=== PATIENT | female | born 1990 | race Caucasian/White ===

== ENCOUNTER → 2016-07-07 | Outpatient (CLI) | payer BC, MEDICAID ==
--- NOTE | 2016-07-08 04:03 | REP ---
Clinical: History of gestational diabetes for growth evaluation . Comparison: None available . Findings: Examination demonstrates a single live intrauterine in cephalic presentation. motion is identified by technologist. Placenta is noted anteriorly and grade one without evidence for placenta previa or abruption. Amniotic fluid volume is normal. Cervix measures 4.3 cm in length and appears closed. Nuchal cord cannot be excluded. Gestational age by current measurements 34 weeks 4 days with MEIR 08/14/2016 . FHR equals 126 beats per minute. BPD 8.7 cm 34 weeks 6 days HC 31.3 cm 35 weeks 0 days AC 29.5 cm 33 weeks 3 days FL 6.9 cm 35 weeks 3 days HL 6.0 cm 34 weeks 5 days HC/AC ratio 1.06 Estimated weight 2401 grams ( 43rd percentile). Amniotic fluid index equals 8.7 cm. Anatomical evaluation demonstrates mild bilateral renal pelviectasis up to 4 mm diameter. Impression: Single live advanced gestation in cephalic presentation. Mild renal pelviectasis. No further gross abnormalities appreciated. Signed by Charles Gill MD 07/08/2016 03:54 A
== END ==
LOC: M SMT 15:09
PROVIDERS: ATTEND Advanced Practice Midwife
DX: O24.419 Gestational diabetes mellitus in pregnancy, unspecified control (principal); Z3A.34 34 weeks gestation of pregnancy

== ENCOUNTER → 2016-07-21 | Outpatient (REF) | payer BC, MEDICAID | LOC: M LAB REF 12:56 | PROVIDERS: ATTEND Obstetrics & Gynecology | DX: Z34.83 Encounter for supervision of other normal pregnancy, third trimester (principal); Z36 Encounter for antenatal screening of mother ==

== ENCOUNTER 2016-08-07 07:46 | Inpatient (IN) | payer BC, MEDICAID ==
[~2016-08-07] VITALS: Ht 157.5 cm; Wt 70.0 kg
[2016-08-07] VITALS (17 sets, daily range): BP systolic 102–143; BP diastolic 52–74
[2016-08-07] MEDS ORDERED: METF500T PO (08:02)
[2016-08-07] MEDS ORDERED: PRENTAB9 PO (08:02)
--- NOTE | 2016-08-07 08:49 | HPE ---
DATE OF ADMISSION: 08/07/2016 A 26-year-old 2, para 1 female at 38-5/7 weeks gestation by an 8-week ultrasound, estimated date of confinement (EDC) 08/16/2016, presents with regular contractions every 4-5 minutes starting at 4:45 a.m. on the day of admission, the contractions increased in intensity. She has a history of prior and desires trial of labor after . COURSE: The patient initiated care at 8 weeks gestation on 01/04/2016. Her first trimester blood pressure was 112/64, weight 125 pounds. She came to [place] for care with desire for a trial of labor after (TOLAC). Her course was significant for gestational diabetes, which was diet controlled. She had excellent control of sugars throughout and adequate ultrasounds for growth. OBSTETRICAL HISTORY: November of 2013: 40-week section of a 7 pound male . The patient had arrest of descent after pushing for 3 hours along with a failed vacuum delivery at that time. MEDICAL HISTORY: Noncontributory. SURGICAL HISTORY: section. ALLERGIES: No known drug allergies. SOCIAL HISTORY: The father of the baby is involved with the patient. Denies cigarettes alcohol or drug use. FAMILY HISTORY: Noncontributory. PHYSICAL EXAMINATION: Blood pressure 124/80. She appears uncomfortable. Head and neck exam: Normal. Lungs: Clear. Heart: Regular rate and rhythm. Abdomen: Nontender, gravid. heart tones: Category 1. Contractions every 3-5 minutes, which palpate as strong. Cervix 4 cm, 100% effaced, -1 station, vertex intact. Extremities: Nontender. LABORATORY: Blood type O+, rubella immune, RPR nonreactive. Hepatitis B and C negative. HIV negative. GBS positive on 07/21/2016. ASSESSMENT: A 26-year-old 2, para 1 at 38-5/7 weeks gestation, history of prior section, presents in active labor. Risks of vaginal after were discussed, including risk of uterine rupture. The patient understands the risks and wishes to proceed. The patient was admitted on 08/07/2016. .
[2016-08-07] MEDS ORDERED: PENICILLIN G POTASSIUM IV 5 MU in D5W MINI-BAG PLUS 100 ML IV STA (09:06)
[2016-08-07 09:07] LABS: MEAN CORPUSCULAR HEMOGLOBIN 32.1 pg (27.0-33.0); MEAN CORPUSCULAR HGB CONC 35.4 g/dl (32.0-36.5); MEAN CORPUSCULAR VOLUME 90.5 fl (80.0-96.0); RED CELL DISTRIBUTION WIDTH 12.6 % (11.5-14.5); WHITE BLOOD COUNT 11.4 K/mm3 (4.0-10.0)
[2016-08-07] MEDS ORDERED: FENTANYL 2MCG/ML ROPIVACAINE 0.2% NACL 250 ML CADD As Ordered ONE (09:54)
[2016-08-07] MEDS ORDERED: NALOXONE INJ 0.4 MG/1 ML VIAL (J2310) IV PRN (11:30)
[2016-08-07] MEDS ORDERED: ONDANSETRON 4MG/2ML VIAL (J2405) IV PRN ×2 (11:30→15:15)
[2016-08-07] MEDS ORDERED: ePHEDrine SULFATE 25 MG/5 ML(5MG/ML) SYRINGE IV PRN (11:30)
[2016-08-07] MEDS ORDERED: FENTANYL/ROPIVACAINE/NACL CADD 250 ML EPIDURAL SCH (11:30)
[2016-08-07] MEDS ORDERED: EPIDURAL/PCA KEYS XX PRN (11:30)
[2016-08-07] MEDS ORDERED: REFRIGERATOR IV KEYS XX PRN (11:30)
[2016-08-07] MEDS ORDERED: EPIDURAL COMMENT XX SCH (11:30)
[2016-08-07] MEDS ORDERED: diphenhydrAMINE INJ 50MG/ML VIAL (J1200) IV PRN (11:30)
[2016-08-07] MEDS ORDERED: PENICILLIN G POTASSIUM IV 2.5 MU in D5W 100 ML IV SCH (13:00)
[2016-08-07] MEDS ORDERED: OXYTOCIN 30 UNITS IN 0.9% NaCl 500ML IV BAG (J2590) As Ordered ONE (14:40)
[2016-08-07] MEDS ORDERED: RHOGAM 300 MCG (1500 IU) INJ (J2790) IM SCH (15:15)
[2016-08-07] MEDS ORDERED: MEASLES,MUMPS,RUBELLA VACCINE INJ (MMR-II) (90707) SC SCH (15:15)
[2016-08-07] MEDS ORDERED: DOCUSATE SODIUM 100 MG CAP PO PRN (15:15)
[2016-08-07] MEDS ORDERED: OXYTOCIN DRIP 30 UNITS in APPROPRIATE DILUENT 1 EA IV ONE (15:15)
[2016-08-07] MEDS ORDERED: DIBUCAINE 1% OINTMENT 30GM TOP PRN (15:15)
[2016-08-07] MEDS ORDERED: IBUPROFEN 800 MG TAB PO PRN (15:15)
[2016-08-07] MEDS ORDERED: METHYLERGONOVINE MALEATE 0.2 MG TAB PO PRN (15:15)
--- NOTE | 2016-08-07 15:23 | DN ---
DATE: 08/07/2016 PREDELIVERY DIAGNOSIS: 38-5/7 weeks gestation, in labor, vaginal after (). POSTDELIVERY DIAGNOSIS: Delivered. PROCEDURE: Spontaneous vaginal delivery. PARKING MANAGER: Dr. Hernan Cantrell ANESTHESIA: Epidural. ESTIMATED BLOOD LOSS: 300 mL. FINDINGS: 7 pound 1 ounce male infant, scores 9 and 9. DELIVERY SUMMARY: After a 20-minute second stage, the patient had spontaneous delivery of a 7 pound 1 ounce male under epidural anesthesia. There was no nuchal cord. The shoulders delivered spontaneously with ease. The infant cried spontaneously and was handed to the mother. The cord was doubly clamped and cut. Placenta delivered spontaneously and appeared to be intact. The patient received IV Pitocin immediately after delivery of the placenta. Secondary perineal laceration was repaired in the usual fashion.
[2016-08-07] MEDS: ACETAMINOPHEN 500 MG TAB PO PRN (19:50)
[2016-08-08 05:45] VITALS: BP 114/55
[2016-08-08] MEDS: PRENATAL VITAMIN TAB PO SCH (09:00)
[2016-08-08] MEDS: ACETAMINOPHEN 500 MG TAB PO PRN (10:52)
[2016-08-08 18:31] VITALS: BP 131/60
[2016-08-09 06:09] VITALS: BP 110/53
[2016-08-09] MEDS: PRENATAL VITAMIN TAB PO SCH (08:24)
[2016-08-09] MEDS ORDERED: ACET50TA PO (09:22)
[2016-08-09] MEDS ORDERED: IBUP-1114 PO (09:22)
== END 2016-08-09 10:55 | disposition home or self-care (01) | DRG 560 ==
LOC: M LDO 07:46 → M LDI 08:11 → M OBS 17:00
PROVIDERS: ADMIT Specialist; ATTEND Specialist
PROC: 10E0XZZ Delivery of Products of Conception, External Approach (ICD-10-PCS; principal; 2016-08-07)
PROC: 0KQM0ZZ Repair Perineum Muscle, Open Approach (ICD-10-PCS; 2016-08-07)
DX: O34.211 Maternal care for low transverse scar from previous cesarean delivery (principal); Z37.0 Single live birth; Z3A.38 38 weeks gestation of pregnancy; O70.1 Second degree perineal laceration during delivery

== ENCOUNTER → 2017-11-09 | Outpatient (CLI) | payer OTHER ==
[2017-11-09 18:13] LABS: BASO % 0.4 % (0.0-1.0); EOS % 0.5 % (0.0-3.0); HEMATOCRIT 37.4 % (36.0-47.0); HEMOGLOBIN 12.6 g/dl (12.0-15.5); IMMATURE GRANULOCYTE % 0.5 % (0-3.0); LYMPH # 1.7 10^3/uL (1.5-6.5); LYMPH % 21.8 % (24.0-44.0); MEAN CORPUSCULAR HEMOGLOBIN 30.7 pg (27.0-33.0); MEAN CORPUSCULAR HGB CONC 33.7 g/dl (32.0-36.5); MONO # 0.5 10^3/uL (0.0-0.8); MONO % 6.7 % (0.0-5.0); NEUTROPHILS # 5.4 10^3/uL (1.8-7.7); NEUTROPHILS % 70.1 % (36.0-66.0); PLATELET COUNT, AUTOMATED 243 10^3/uL (150-450); RED BLOOD COUNT 4.11 10^6/uL (4.00-5.40); RED CELL DISTRIBUTION WIDTH 12.8 % (11.5-14.5); WHITE BLOOD COUNT 7.7 10^3/uL (4.0-10.0)
[2017-11-09 21:33] LABS: CHLAMYDIA DNA AMPLIFICATION NEGATIVE (NEGATIVE); GC DNA AMPLIFICATION NEGATIVE (NEGATIVE)
[2017-11-10 12:03] LABS: RUBELLA IgG QUALITATIVE IMMUNE (IMMUNE)
[2017-11-10 12:11] LABS: HBsAg Prenatal NEGATIVE (NEGATIVE)
[2017-11-10 12:33] LABS: HEPATITIS C VIRUS ABY INDEX < 0.0 INDEX (<0.8)
[2017-11-10 12:34] LABS: HIV 1&2 SCREEN CENTAUR NEGATIVE (NEGATIVE)
== END ==
LOC: M SMT 14:26
DX: Z36.89 Encounter for other specified antenatal screening (principal); Z3A.12 12 weeks gestation of pregnancy
CPT/HCPCS: 86762

== ENCOUNTER → 2017-12-26 | Outpatient (CLI) | payer MEDICAID, BC | LOC: M RAD 10:33 | DX: Z34.82 Encounter for supervision of other normal pregnancy, second trimester (principal); Z36.89 Encounter for other specified antenatal screening; Z3A.19 19 weeks gestation of pregnancy | CPT/HCPCS: 76811 ==

== ENCOUNTER → 2018-01-12 | Outpatient (CLI) | payer MEDICAID | LOC: M RAD 13:36 | DX: Z34.82 Encounter for supervision of other normal pregnancy, second trimester (principal) | CPT/HCPCS: 76816 ==

== ENCOUNTER → 2018-04-25 | Outpatient (REF) | payer MEDICAID, OTHER | LOC: M LAB REF 16:59 | DX: Z34.83 Encounter for supervision of other normal pregnancy, third trimester (principal) ==

== ENCOUNTER 2018-05-17 07:19 | Inpatient (IN) | payer OTHER ==
[2018-05-17] MEDS: LACTATED RINGER'S 1000 ML IV (08:14)
[2018-05-17] MEDS: PENICILLIN G POTASSIUM IV 5 MU in D5W MINI-BAG PLUS 100 ML IV (08:23)
[2018-05-17 08:26] LABS: HEMOGLOBIN 13.5 g/dl (12.0-15.5); MEAN CORPUSCULAR HEMOGLOBIN 32.5 pg (27.0-33.0); MEAN CORPUSCULAR HGB CONC 35.5 g/dl (32.0-36.5); MEAN CORPUSCULAR VOLUME 91.3 fl (80.0-96.0); PLATELET COUNT, AUTOMATED 207 10^3/uL (150-450); RED BLOOD COUNT 4.16 10^6/uL (4.00-5.40); RED CELL DISTRIBUTION WIDTH 12.6 % (11.5-14.5); WHITE BLOOD COUNT 8.5 10^3/uL (4.0-10.0)
[2018-05-17] MEDS: FENTANYL/ROPIVACAINE/NACL BAG 100 ML EPIDURAL (09:30)
[2018-05-17] MEDS: LR 1,000 ML IV (09:32)
[2018-05-17] MEDS ORDERED: ePHEDrine SULFATE 25 MG/5 ML(5MG/ML) SYRINGE IV (10:00)
[2018-05-17] MEDS ORDERED: REFRIGERATOR IV KEYS XX (10:00)
[2018-05-17] MEDS ORDERED: EPIDURAL/PCA KEYS XX (10:00)
[2018-05-17] MEDS ORDERED: LACTATED RINGER'S 1000 ML IV (10:00)
[2018-05-17] MEDS ORDERED: NALOXONE INJ 0.4 MG/1 ML VIAL (J2310) IV (10:00)
[2018-05-17] MEDS ORDERED: diphenhydrAMINE INJ 50MG/ML VIAL (J1200) IV (10:00)
[2018-05-17] MEDS ORDERED: EPIDURAL COMMENT XX (10:00)
[2018-05-17] MEDS ORDERED: ONDANSETRON 4MG/2ML VIAL (J2405) IV (10:00)
[2018-05-17] MEDS: PENICILLIN G POTASSIUM IV 2.5 MU in APPROPRIATE DILUENT 1 EA IV (12:23)
[2018-05-17] MEDS ORDERED: OXYTOCIN 30 UNITS IN 0.9% NaCl 500ML IV BAG (J2590) As Ordered (12:49)
[2018-05-17] MEDS ORDERED: RHOGAM 300 MCG (1500 IU) INJ (J2790) IM (13:45)
[2018-05-17] MEDS ORDERED: ACETAMINOPHEN 500 MG TAB PO (13:45)
[2018-05-17] MEDS ORDERED: METHYLERGONOVINE MALEATE 0.2 MG TAB PO (13:45)
[2018-05-17] MEDS ORDERED: MEASLES,MUMPS,RUBELLA VACCINE INJ (MMR-II) (90707) SC (13:45)
[2018-05-17] MEDS ORDERED: DIBUCAINE 1% OINTMENT 30GM TOP (13:45)
[2018-05-17] MEDS ORDERED: ANUSOL HC CREAM 30GM TOP (13:45)
[2018-05-17] MEDS ORDERED: MOM 30ML SUSPENSION UDC PO (13:45)
[2018-05-17] MEDS ORDERED: METOCLOPRAMIDE INJ 10MG/2ML VIAL (J2765) IV (13:45)
[2018-05-17] MEDS ORDERED: DOCUSATE SODIUM 100 MG CAP PO (13:45)
[2018-05-17] MEDS ORDERED: IBUPROFEN 800 MG TAB PO (13:45)
[2018-05-17] MEDS: OXYTOCIN DRIP 30 UNITS in APPROPRIATE DILUENT 1 EA IV (14:28)
[2018-05-18] MEDS: PRENATAL VITAMINS CHEWABLE TABLET PO (08:33)
[2018-05-19] MEDS: PRENATAL VITAMINS CHEWABLE TABLET PO (09:31)
== END 2018-05-19 11:45 | disposition home or self-care (01) | DRG 560 ==
LOC: M LDO 07:19 → M LDI 07:55 → M OBS 15:54
PROVIDERS: Obstetrics & Gynecology
PROC: 10E0XZZ Delivery of Products of Conception, External Approach (ICD-10-PCS; principal; 2018-05-17)
DX: O34.211 Maternal care for low transverse scar from previous cesarean delivery (principal); O99.820 Streptococcus B carrier state complicating pregnancy; Z37.0 Single live birth; Z3A.39 39 weeks gestation of pregnancy

== ENCOUNTER → 2019-01-16 | Outpatient (CLI) | payer OTHER ==
[~2019-01-16] MED LIST: IBUP-1114 PO; MAPA500T2 PO; METF500T13 PO; PRENTAB9 PO
[2019-01-16 13:32] LABS: BASO % 0.6 % (0.0-1.0); EOS # 0.1 10^3/uL (0.0-0.50); EOS % 1.4 % (0.0-3.0); HEMATOCRIT 42.1 % (36.0-47.0); HEMOGLOBIN 14.1 g/dl (12.0-15.5); LYMPH # 1.7 10^3/uL (1.5-6.5); LYMPH % 25.9 % (24.0-44.0); MEAN CORPUSCULAR HEMOGLOBIN 31.3 pg (27.0-33.0); MEAN CORPUSCULAR HGB CONC 33.5 g/dl (32.0-36.5); MEAN CORPUSCULAR VOLUME 93.6 fl (80.0-96.0); MONO # 0.6 10^3/uL (0.0-0.8); NEUTROPHILS % 62.3 % (36.0-66.0); PLATELET COUNT, AUTOMATED 204 10^3/uL (150-450); WHITE BLOOD COUNT 6.4 10^3/uL (4.0-10.0)
[2019-01-16 14:39] LABS: HEPATITIS C VIRUS ABY INDEX 0.1 INDEX (<0.8); HIV 1&2 SCREEN CENTAUR NEGATIVE (NEGATIVE); RUBELLA IgG QUALITATIVE IMMUNE (IMMUNE)
[2019-01-16 16:42] LABS: CHLAMYDIA DNA AMPLIFICATION NEGATIVE (NEGATIVE); GC DNA AMPLIFICATION NEGATIVE (NEGATIVE)
== END ==
LOC: M SMT 10:47
PROVIDERS: ATTEND Advanced Practice Midwife
DX: Z34.81 Encounter for supervision of other normal pregnancy, first trimester (principal); Z3A.00 Weeks of gestation of pregnancy not specified

== ENCOUNTER → 2019-02-22 | Outpatient (CLI) | payer OTHER ==
--- NOTE | 2019-02-22 19:28 | REP ---
HISTORY: anatomy. Multiple ultrasonographic images of the gravid uterus show a single living intrauterine gestation in variable positions. Doppler interrogation of the heart shows a heart rate of 139 beats per minute. The placenta is anterior and not low lying. The subjective amniotic fluid volume is within normal limits. The cervix measures 3.9 cm in length and is closed. The structures visualized as unremarkable are as follows: Thalami, cavum septum pellucidum, cerebellum, cisterna magna, cerebral ventricles, kidneys, urinary bladder, cord insertion, three vessel umbilical cord, upper lip, four chamber heart, right and left ventricular outflow tracts, and stomach. The spine was suboptimally visualized. BPD 4.4 cm = 19 weeks 1 day HC 15.9 cm = 18 weeks 5 days AC 13.3 cm = 18 weeks 6 days FL 2.8 cm = 18 weeks 4 days The estimated weight is 254 grams, which is at the 17th percentile for a 19 week 4 day gestational age. IMPRESSION: Single living intrauterine gestation as described above with an estimated gestational age of 18 weeks 6 days via composite criteria and an estimated date of delivery of 07/20/2019 by today's exam. No anomalies were detected, however, I recommend a followup examination to better visualize the spine. Electronically Signed by Larry Weeks DO 02/22/2019 07:42 P
== END ==
LOC: M RAD 17:34
PROVIDERS: ATTEND Advanced Practice Midwife
DX: Z34.82 Encounter for supervision of other normal pregnancy, second trimester (principal); Z3A.19 19 weeks gestation of pregnancy

== ENCOUNTER → 2019-04-05 | Outpatient (CLI) | payer OTHER ==
--- NOTE | 2019-04-06 08:04 | REP ---
OB ULTRASOUND: Real-time sonographic evaluation of the gravid uterus is performed. There is a single living intrauterine gestation, the estimated gestational age 25 weeks 4 days. EDC 07/15/2019. Today's measurements indicate appropriate growth. BPD 62 mm 25 weeks 1 day, 41st percentile HC 228 mm 24 weeks 6 days, 33rd percentile AC 197 mm 24 weeks 3 days, 25th percentile FL 44 mm 24 weeks 4 days, 29th percentile HC/AC ratio 1.16 within normal range. Estimated weight 708 grams, 16th percentile. Cervix is closed and measures 3.6 cm in length. heart rate 130 beats per minute. Today's measurements indicate appropriate growth. SEEN/GROSSLY UNREMARKABLE Lateral ventricles Yes Posterior fossa Yes Upper lip Yes Four-chamber heart Yes LVOT Yes RVOT Yes Stomach Yes Cord insertion Yes Three vessel cord Yes Kidneys Yes Bladder Yes Spine No position: Breech. Placenta: Anterior and grade 0 with no previa or abruption. Placental cord insertion is noted to be somewhat eccentric. Amniotic fluid: Within normal limits. Electronically Signed by Keshav Clark MD 04/06/2019 03:40 P
== END ==
LOC: M RAD 17:39
PROVIDERS: ATTEND Obstetrics & Gynecology
DX: Z34.82 Encounter for supervision of other normal pregnancy, second trimester (principal); Z3A.24 24 weeks gestation of pregnancy

== ENCOUNTER → 2019-04-22 | Outpatient (CLI) | payer OTHER ==
--- NOTE | 2019-04-23 06:18 | REP ---
Clinical: Anatomical evaluation. Comparison: 04/05/2019 . Findings: Examination demonstrates a single live intrauterine in breech presentation. motion is identified by technologist. Placenta is noted anterior and grade air I without evidence for placenta previa or abruption. Amniotic fluid volume is normal. Cervix measures 3.4 cm in length and appears closed. No evidence for nuchal cord. Gestational age by LMP 28 weeks 0 days with MEIR 07/15/2019 . Gestational age by current measurements 27 weeks 3 days with MEIR 07/19/2019 . FHR equals 132 beats per minute. Estimated weight 1027 grams ( 22nd percentile). Anatomical assessment demonstrates normal structures including cranium, cavum, cerebellum/posterior fossa, facial features, lungs, four-chamber heart/ventricular outflow tracts, diaphragm, stomach, three-vessel cord, kidneys/bladder. Impression: 1. Single live intrauterine in breech presentation demonstrating appropriate interval growth. 2. No gross anatomical abnormalities are appreciated. Electronically Signed by Charles Gill MD 04/23/2019 06:10 A
== END ==
LOC: M RAD 09:49
PROVIDERS: ATTEND Advanced Practice Midwife
DX: Z34.82 Encounter for supervision of other normal pregnancy, second trimester (principal); Z3A.27 27 weeks gestation of pregnancy

== ENCOUNTER → 2019-06-21 | Outpatient (CLI) | payer OTHER | LOC: M PLALAB 11:27 | PROVIDERS: ATTEND Advanced Practice Midwife | DX: O34.211 Maternal care for low transverse scar from previous cesarean delivery (principal) ==

== ENCOUNTER 2019-07-17 18:00 | Inpatient (IN) | payer OTHER ==
[~2019-07-17] VITALS: Ht 157.5 cm; Wt 75.7 kg
[2019-07-17] VITALS (8 sets, daily range): BP systolic 97–146; BP diastolic 53–78
[2019-07-17] MEDS ORDERED: LR 1,000 ML IV SCH (18:29)
[2019-07-17] MEDS ORDERED: LACTATED RINGER'S 1000 ML IV STA (18:29)
[2019-07-17 18:55] LABS: HEMATOCRIT 39.9 % (36.0-47.0); HEMOGLOBIN 13.1 g/dl (12.0-15.5); MEAN CORPUSCULAR HGB CONC 32.8 g/dl (32.0-36.5); MEAN CORPUSCULAR VOLUME 94.3 fl (80.0-96.0); PLATELET COUNT, AUTOMATED 215 10^3/uL (150-450); RED BLOOD COUNT 4.23 10^6/uL (4.00-5.40); WHITE BLOOD COUNT 9.8 10^3/uL (4.0-10.0)
--- NOTE | 2019-07-17 19:17 | HPEPDOC ---
Obstetrical History & Physical General Date of Admission Jul 17, 2019 at 18:28 Primary Care Physician: HARSHAL ROY CNM History of Present Illness Patient is a 29-year-old at 40.1wk gestation based on LMP and consistent with 9-week ultrasound. MEIR 07/16/18. She initiated care in first trimester. has been complicated by history of and nephrolithiasis. Patient is O+ and GBS negative. She presents to labor and delivery complaining of painful uterine contractions increasing in intensity at 1500 today. Patient denies leakage of fluid or vaginal bleeding. She reports positive movement. Chief Complaint: Contractions, term, Active Labor Information Provided By: Patient Age: 29 : 4 Term: 3 Pre-term: 0 Abortions: 0 Livin Care Care: Good Care Dating Final EDC: Jul 16, 2019 Final EDC by: LMP LMP: Oct 09, 2018 1st Trimester Date: Dec 19, 2018 Antepartum Course Diagnos(e)s SIUP at 40.1wk, TOLAC Height (inches): 62 Pre- weight (lbs.): 130 Admission Weight (lbs.): 167 Change in Weight (lbs.): 37 Past Medical History Past Obstetrical History #1: Past Obstetrical History: Primgravida Gestation: 40 Type of Delivery: Ceserean section (11/2013) Sex of : Male Weight of (grams): 3175 Complications: Yes (arrest of descent, vacuum, episiotomy) Past Obstetrical History #2: Past Obstetrical History: Multigravida Gestation: 39 Type of Delivery: Spontaneous Vaginal Del. (07/2016) Sex of : Male Weight of Infant (grams): 3232 Complications: No Past Obstetrical History #3: Gestation: 39 Type of Delivery: Spontaneous Vaginal Del. (05/2018) Sex of Infant: Female Weight of (grams): 3260 Complications: No PORTAL DEVELOPER History: No pertinent history Past Medical History Medical History asthma Surgical History: section Family History Significant Family History: Diabetes, Heart disease, Hypertension Social History Marital Status: Family situation: Spouse/partner home Psychosocial History: No pertinent psych hx * Smoker: non-smoker Alcohol: Denies Drugs: denies Abuse Violence Screening Have you been hit/kicked/slapp: No Have you been sexually assault: No Allergies Coded Allergies: No Known Allergies (Unverified , 07/17/19) Medications Scheduled No.137/Iron/Folic Acd ( Vitamin Tablet) 1 Tab Tab, 1 TAB PO DAILY Physical Examination Physical Examination GENERAL: Alert and oriented times three. BREAST: . ABDOMEN: Gravid and non-tender to touch. FETUS: Is vertex (VTX) by sterile vaginal examination (SVE), fetus is vertex ( VTX) by John. HEART RATE: Regular rate and rhythm. LUNGS: Clear to auscultation (CTA). EXTREMITIES: No edema. No clonus. Deep tendon reflexes (DTRs) + 2. Laboratory Data 24H LABS Laboratory Tests 2 07/17/19 18:32: Serology Scanned Report Hepatitis B Testing Pertinent Laboratoy Data Blood Type: O+ RBC Antibody Screen: Negative HIV: Negative Hepatitis B: Negative Hepatitis C: Negative Rapid Plasma Reagin: Nonreactive Rubella: Immune Chlamydia/Gonorrhea: Negative Group B Streptococcus: Negative Quad Screen Test: Declined Glucose Tolerance Test: 97 Anatomy Ultrasound Ultrasound Date: Feb 22, 2019 Placenta Location: Anterior Normal Anatomy: Yes Placenta Previa: No Estimated Weight (grams): 254 (17%) Other Ultrasounds 12/19/18-SIUP, +FH, CRL 24.9mm, 9.1wk gestation 02/22/1930-pkyqjes-QCL normal, EFW 254g (17%), anterior placenta 04/05/19-follow up anatomy-AFV normal, EFW 708g (16%), anterior placenta 04/22/19-follow up anatomy-AFV normal, EFW 1027g (22%), anterior placenta, assessment complete and normal Steroid Therapy Steroid Therapy: No Vaginal Examination Dilation: 5 cm Effacement: 80% Station: 0 Cervical Consistency: Soft Cervical Position: Anterior Presentation: Cephalic presentation Position: Vertex (occiput) Assessment Heart Rate (FHR): 125 Variability: Moderate Accelerations: Positive Decelerations: Variable Tocometer Frequency: every 1-3 min. Duration: greater than 60 seconds Strength: palpated as moderate Assessment/Plan Assessment SIUP at 40.1wk gestation, TOLAC, active labor Plan Admit to labor and delivery. Diet: clears. Group B Streptococcus (GBS) negative. Labs and intravenous (IV) per unit protocol. Counseled on Pitocin and augmentation of labor (IOL). Lactated Ringers (LR): Bolus 800 mL (prior to epidural), then at 125 mL/hr. Up ad herlinda prior to epidural. Anesthesia consult per patient request. Dr. Cantrell consulted, agrees with plan and present in department. Anticipate cervical change and vaginal . C-S as appropriate. HARSHAL ROY CNM Jul 17, 2019 19:17
[2019-07-17] MEDS ORDERED: FENTANYL 2MCG/ML ROPIVACAINE 0.2% IN 0.9% NACL 100ML IVBAG As Ordered ONE (19:28)
[2019-07-17] MEDS ORDERED: EPIDURAL/PCA KEYS XX PRN (19:30)
[2019-07-17] MEDS ORDERED: EPIDURAL COMMENT XX SCH (19:30)
[2019-07-17] MEDS ORDERED: ePHEDrine SULFATE 25 MG/5 ML(5MG/ML) SYRINGE IV PRN (19:30)
[2019-07-17] MEDS ORDERED: NALOXONE INJ 0.4 MG/1 ML VIAL (J2310) IV PRN (19:30)
[2019-07-17] MEDS ORDERED: ONDANSETRON 4MG/2ML VIAL (J2405) IV PRN (19:30)
[2019-07-17] MEDS ORDERED: diphenhydrAMINE INJ 50MG/ML VIAL (J1200) IV PRN (19:30)
[2019-07-17] MEDS ORDERED: FENTANYL/ROPIVACAINE/NACL BAG 100 ML EPIDURAL SCH (19:30)
[2019-07-17] MEDS ORDERED: REFRIGERATOR IV KEYS XX PRN (19:30)
[2019-07-17] MEDS ORDERED: OXYTOCIN 30 UNITS IN 0.9% NaCl 500ML IV BAG (J2590) As Ordered ONE (20:24)
--- NOTE | 2019-07-17 20:25 | IPNPDOC ---
Obstetrical Progress Note Date of Service Jul 17, 2019 Subjective Patient reports she feels comfortable with her epidural. Assessment Heart Rate (FHR): 110 (110-120) Variability: Moderate Accelerations: Positive Decelerations: Early Heart Rate Tracing: Category I Tocometer Contractions: Yes Frequency: regular Sterile Vaginal Examination Dilation: 9 cm Effacement (%): 100% Station: 0 Postion/Presentation: Cephalic presentation Assessment and Plan Status: Reassuring Group B Streptococcus: Negative Anticipate: Vaginal Delivery Additional Comments AROM to a moderate amount of clear fluid. HARSHAL ROY CNM Jul 17, 2019 20:25
--- NOTE | 2019-07-17 21:39 | DNPDOC ---
[facility] Delivery Note Delivery Note DATE OF DELIVERY: 07/17/2019 at 2106 PREDELIVERY DIAGNOSIS: 40-1/7 weeks' gestation and labor. POST DELIVERY DIAGNOSIS: Delivered. PROCEDURE: Spontaneous vaginal delivery after section. PROVIDER: Yohana Manning, Student Nurse-Bee Tender assisted by Harshal Fernandez CNM, [place]; Dr. Cantrell collaborating and in department. ANESTHESIA: Epidural. ESTIMATED BLOOD LOSS: 300 mL. FINDINGS: 7 pound 0 ounce (3180g) male , Score 9/9, tight nuchal cord times 2, successful DELIVERY SUMMARY: Patient is a 29-year-old 4 now para 4-0-0-4 who was admitted to labor and delivery in active labor for trial of labor after (TOLAC). She received an epidural for pain management. AROM performed for moderate amount of clear fluid. Dr. Cantrell was aware of patient's condition and was present in the department during active labor and while patient was pushing until delivery. The patient progressed to fully dilated at 2030 and pushed to a living male in the ROT position without restitution at 2105. A tight nuchal cord times 2 was noted. The anterior shoulder was delivered with ease and the corpus immediately followed with the somersault maneuver. The baby was placed on the maternal abdomen, [id number], active and crying. The cord was clamped times 2 after pulsation ceased and cut by the patient. A 3-vessel cord was noted. The placenta delivered spontaneously and intact at 2109. Uterine hemostasis was achieved via rapid infusion of IV Pitocin at 999 ml/hr for 30 units in 500 ml NS and fundal massage. The vagina, cervix and perineum were inspected and found to have small bilateral labial abrasions that were not repaired due to good hemostasis. Mom plans to breastfeed. Both mom and baby are in stable condition. All counts of instruments and sponges are correct. HARSHAL FERNANDEZ CNM Jul 17, 2019 21:39
[2019-07-17] MEDS ORDERED: OXYTOCIN DRIP 30 UNITS in IV 1 EA IV SCH (21:49)
[2019-07-17] MEDS ORDERED: RHOGAM 300 MCG (1500 IU) INJ (J2790) IM SCH (22:00)
[2019-07-17] MEDS ORDERED: IBUPROFEN 800 MG TAB PO PRN (22:00)
[2019-07-17] MEDS ORDERED: MEASLES,MUMPS,RUBELLA VACCINE INJ (MMR-II) (90707) SC SCH (22:00)
[2019-07-17] MEDS ORDERED: DIBUCAINE 1% OINTMENT 30GM TOP PRN (22:00)
[2019-07-17] MEDS ORDERED: METHYLERGONOVINE MALEATE 0.2 MG TAB PO PRN (22:00)
[2019-07-17] MEDS ORDERED: ACETAMINOPHEN TAB 650MG DOSE (2X325MG) PO PRN (22:00)
[2019-07-17] MEDS ORDERED: DOCUSATE SODIUM 100 MG CAP PO PRN (22:00)
[2019-07-17] MEDS ORDERED: ANUSOL HC CREAM 30GM TOP PRN (22:00)
[2019-07-17] MEDS ORDERED: ACETAMINOPHEN 500 MG TAB PO PRN (22:00)
[2019-07-17] MEDS ORDERED: IBUPROFEN 600 MG TAB PO PRN (22:00)
[2019-07-18] VITALS: BP 107/54
--- NOTE | 2019-07-18 07:38 | IPNPDOC ---
Progress Note Date of Service: Jul 18, 2019 Day#: 1 Progress Note SUBJECT: Jammie Mix is a 29-year-old 4 now Para 4-0-0-4 status post uncomplicated spontaneous vaginal delivery at 40-1/7 weeks' at 2106 hours on 07/17/2019 of a male infant 7 pounds 0 ounces (3180 grams), doing well day # 1. She has been ambulating, voiding spontaneously without issue and tolerating regular diet. Breast feeding without issue. Reports lochia is like a normal period. Patient is ambulating well. Reports some cramping with . Denies any pain. Voiding without difficulty. OBJECTIVE: VITAL SIGNS: Within normal limits, afebrile. Alert and oriented times three. Breath sounds clear to auscultation. Heart rate: Regular rate and rhythm, no murmurs, rubs or gallops. Abdomen: Fundus firm at U-1. Soft, appropriately tender to palpation. Minimal lochia. ASSESSMENT: Patient is a 29-year-old 4 now Para 4-0-0-4 status post uncomplicated spontaneous vaginal delivery after presenting in active labor with artificial rupture of membranes (AROM), delivered at 2106 hours and 40-1/7 weeks', doing well on day 1. Vitals within normal limits, afebrile, hemodynamically stable with no evidence of infection. PLAN: 1. Discharge to home tomorrow. 2. Tylenol and Motrin for pain. 3. Encourage breast feeding and ambulation. 4. Continue routine care. VS, I&O, 24H, Salbone Vital Signs/I&O Vital Signs Date Time Temp Pulse Resp B/P (MAP) Pulse Ox O2 Delivery O2 Flow Rate FiO2 07/18/19 00:00 98.6 74 18 107/54 (71) Room Air I&O- Last 24 Hours up to 6 AM 07/18/19 06:00 Intake Total 1900 ml Output Total 300 ml Balance 1600 ml Laboratory Data 24H LABS Laboratory Tests 2 07/17/19 18:32: Serology Scanned Report Hepatitis B Testing 07/17/19 18:43: Nucleated Red Blood Cells % (auto) 0.0 CBC/BMP Laboratory Tests 07/17/19 18:43 HARSHAL ROY CNM Jul 18, 2019 07:38
[2019-07-18] MEDS: PRENATAL VITAMINS CHEWABLE TABLET PO SCH (09:45)
[2019-07-18 18:00] VITALS: BP 111/54
[2019-07-19 06:12] VITALS: BP 97/51
[2019-07-19] MEDS ORDERED: IBUP80TA PO (07:28)
[2019-07-19] MEDS ORDERED: ACET-683 PO (07:28)
[2019-07-19] MEDS: PRENATAL VITAMINS CHEWABLE TABLET PO SCH (07:57)
== END 2019-07-19 13:45 | disposition home or self-care (01) | DRG 560 ==
LOC: M LDO 18:00 → M LDI 18:28 → M OBS 23:54
PROVIDERS: ADMIT Advanced Practice Midwife; ATTEND Advanced Practice Midwife
PROC: 10E0XZZ Delivery of Products of Conception, External Approach (ICD-10-PCS; principal; 2019-07-17)
PROC: 10907ZC Drainage of Amniotic Fluid, Therapeutic from Products of Conception, Via Natural or Artificial Opening (ICD-10-PCS; 2019-07-17)
DX: O34.219 Maternal care for unspecified type scar from previous cesarean delivery (principal); Z3A.40 40 weeks gestation of pregnancy; Z37.0 Single live birth; O48.0 Post-term pregnancy; O69.1XX0 Labor and delivery complicated by cord around neck, with compression, not applicable or unspecified

== ENCOUNTER → 2022-09-19 | Outpatient (CLI) | payer MEDICAID, OTHER ==
[~2022-09-19] MED LIST changes: +ACET-683 PO; +IBUP80TA PO
== END ==
LOC: M PLALAB 14:03
PROVIDERS: ATTEND Surgery
DX: D24.2 Benign neoplasm of left breast (principal); Z80.41 Family history of malignant neoplasm of ovary; Z13.79 Encounter for other screening for genetic and chromosomal anomalies

== ENCOUNTER 2022-10-18 06:01 | Day surgery (SDC) | payer OTHER ==
[~2022-10-18] VITALS: Ht 157.5 cm; Wt 58.4 kg
[~2022-10-18 06:01] MED LIST changes: +HEPARIN SOD (PORCINE) 5000UNITS/ML 1ML VIAL/SYRINGE SQ ONE; +ceFAZolin SOD 2 GM in IV 1 EA IV ONE
[2022-10-18] MEDS ORDERED: LR 1,000 ML IV SCH (06:55)
[2022-10-18] MEDS ORDERED: fentaNYL 100 MCG/2 ML INJECTION As Ordered ONE ×2 (07:00→07:01)
[2022-10-18] MEDS ORDERED: propofoL 200 MG/20 ML VIAL As Ordered ONE (07:00)
[2022-10-18] MEDS ORDERED: ONDANSETRON 4MG 2ML VIAL As Ordered ONE (07:00)
[2022-10-18] MEDS ORDERED: MIDAZOLAM INJ 2MG/2ML VIAL As Ordered ONE (07:00)
[2022-10-18] MEDS ORDERED: LIDOCAINE 2% 100MG/5ML SDV (FOR ANES.) As Ordered ONE (07:01)
[2022-10-18] MEDS ORDERED: LIDOCAINE 1% SDV 30ML VIAL As Ordered ONE (07:22)
[2022-10-18] MEDS ORDERED: BUPIVACAINE HCL 0.25% 30ML VIAL As Ordered ONE (07:22)
[2022-10-18] MEDS ORDERED: ACETAMINOPHEN 1000MG 100ML IV BAG As Ordered ONE (08:12)
[2022-10-18] MEDS ORDERED: TRAM50TA2 PO (09:15)
[2022-10-18] MEDS ORDERED: fentaNYL 100 MCG/2 ML INJECTION IV PRN (09:25)
[2022-10-18] MEDS ORDERED: MORPHINE 2 MG/ML 1ML VIAL IV PRN (09:25)
[2022-10-18] MEDS ORDERED: ONDANSETRON 4MG 2ML VIAL IV PRN (09:25)
[2022-10-18] MEDS ORDERED: oxyCODONE 5MG TAB PO PRN (09:25)
[2022-10-18 11:27] VITALS: BP 124/58
== END 2022-10-18 11:40 | disposition home or self-care (01) ==
LOC: M SDC 06:01
PROVIDERS: ATTEND Surgery
DX: N60.22 Fibroadenosis of left breast (principal)
CPT/HCPCS: 19120; 36415; 81025; 86850; 86900; 86901; 88307; A4648; J0131; J1100; J2250; J2405; J3010

== ENCOUNTER → 2022-11-22 | Outpatient (REF) | payer OTHER, MEDICAID ==
[~2022-11-22] MED LIST changes: -HEPARIN SOD (PORCINE) 5000UNITS/ML 1ML VIAL/SYRINGE SQ ONE; +TRAM50TA2 PO; -ceFAZolin SOD 2 GM in IV 1 EA IV ONE
== END ==
LOC: M SFHCWAGY 08:42
PROVIDERS: ATTEND Nurse Practitioner Family
DX: Z12.4 Encounter for screening for malignant neoplasm of cervix (principal); Z77.9 Other contact with and (suspected) exposures hazardous to health

== ENCOUNTER → 2024-08-08 | Outpatient (REF) | payer OTHER, MEDICAID ==
[2024-08-08 19:18] LABS: BASO # 0.1 10^3/uL (0.0-0.2); BASO % 0.7 % (0.0-1.0); EOS # 0.1 10^3/uL (0.0-0.5); EOS % 1.5 % (0.0-3.0); HEMATOCRIT 36.1 % (36.0-47.0); HEMOGLOBIN 11.3 g/dl (12.0-15.5); LYMPH % 29.4 % (24.0-44.0); MEAN CORPUSCULAR HEMOGLOBIN 27.6 pg (27.0-33.0); MEAN CORPUSCULAR HGB CONC 31.3 g/dl (32.0-36.5); MEAN CORPUSCULAR VOLUME 88.3 fl (80.0-96.0); MONO # 0.7 10^3/uL (0.0-0.8); MONO % 9.6 % (2.0-8.0); NEUTROPHILS % 58.5 % (36.0-66.0); PLATELET COUNT, AUTOMATED 285 10^3/uL (150-450); RED BLOOD COUNT 4.09 10^6/uL (4.00-5.40); WHITE BLOOD COUNT 6.9 10^3/uL (4.0-10.0)
[2024-08-08 19:35] LABS: ALBUMIN 3.8 G/DL (3.2-5.2); ALKALINE PHOSPHATASE 63 U/L (35-104); ALT/SGPT 18 U/L (7.0-40); AST/SGOT 18 U/L (<34); BILIRUBIN,TOTAL 0.5 MG/DL (0.3-1.2); BLOOD UREA NITROGEN 14 MG/DL (9-23); CALCIUM LEVEL 9.1 MG/DL (8.5-10.1); CARBON DIOXIDE LEVEL 30 MMOL/L (20-31); CHLORIDE LEVEL 103 MMOL/L (98-107); GLOMERULAR FILTRATION RATE > 60.0 (>60); GLUCOSE, FASTING 90 MG/DL (60-100); POTASSIUM SERUM 4.1 MMOL/L (3.5-5.1); SODIUM LEVEL 141 MMOL/L (136-145); TOTAL PROTEIN 6.8 G/DL (5.7-8.2)
[2024-08-08 19:39] LABS: THYROID STIMULATING HORMONE 1.125 uIU/ML (0.55-4.78)
[2024-08-08 19:56] LABS: HEPATITIS B SURFACE ANTIGEN NEGATIVE (NEGATIVE)
[2024-08-08 20:17] LABS: HEPATITIS B CORE ANTIBODY IGM NEGATIVE (NEGATIVE)
== END ==
LOC: M SFHCDERM 17:56
PROVIDERS: ATTEND Nurse Practitioner Family
DX: L29.9 Pruritus, unspecified (principal)